=== PATIENT | male | born 1980 | race Caucasian/White ===

== ENCOUNTER 2017-06-24 20:24 | Emergency (ER) | payer OTHER ==
[2017-06-24] MEDS ORDERED: Diphtheria,Pertussis(Acell),Tetanus Vaccine 0.5 ML SDV IM ONE (21:18)
--- NOTE | 2017-06-24 22:03 | EDM.PDOC ---
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, got out of 6y ago, will give booster Left 2-Index finger Pain Score (Numeric/FACES): 8 - Related Data Allergies Allergy/AdvReac Type Severity Reaction Status Date / Time tramadol Allergy Cannot Verified 06/24/17 20:55 Remember Home Meds: Home Meds Cephalexin 500 mg PO TID #9 tablet 06/24/17 [Rx] busPIRone [Buspar] 10 mg PO DAILY 06/24/17 [History] lamoTRIgine [Lamictal] 25 mg PO DAILY 06/24/17 [History] tiZANidine 2 mg PO BEDTIME 06/24/17 [History] Past Medical History Psychiatric History: Reports: PTSD Social & Family History - Family History Family Medical History: Noncontributory ED ROS GENERAL - Review of Systems Review Of Systems: See Below Constitutional: Reports: No Symptoms HEENT: Reports: No Symptoms Respiratory: Reports: No Symptoms Cardiovascular: Reports: No Symptoms Endocrine: Reports: No Symptoms GI/Abdominal: Reports: No Symptoms : Reports: No Symptoms Musculoskeletal: Reports: No Symptoms Skin: Reports: Wound Neurological: Reports: No Symptoms Psychiatric: Reports: No Symptoms Hematologic/Lymphatic: Reports: No Symptoms Immunologic: Reports: No Symptoms ED EXAM, SKIN/RASH Exam: See Below Exam Limited By: No Limitations General Appearance: Alert, WD/WN, No Apparent Distress Skin: Other (L index finger with superficial U-shaped 1 cm lac dorsal and just distal to DIP, small amount of grease at lateral aspect, however edges are completely aligned, peeling back medial margin indicates depth of 3 mm, primarily in horizontal plane and superficial to tendons and joint, full flex/ ext PIP, LT intact) Course - Vital Signs Last Recorded V/S: Last Vital Signs Temp 36.7 C 06/24/17 20:35 Pulse 92 06/24/17 20:35 Resp 16 06/24/17 20:35 BP 134/86 06/24/17 20:35 Pulse Ox 92 L 06/24/17 20:35 - Orders/Labs/Meds Orders: Active Orders 24 hr Category Date Time Status Vaccines to be Administered [RC] PER UNIT ROUTINE Care 06/24/17 21:19 Active Meds: Medications Discontinued Medications Generic Name Dose Route Start Last Admin Trade Name Deuce PRN Reason Stop Dose Admin Diphtheria/Tetanus/Acell Pertussis 0.5 ml 06/24/17 21:18 Adacel IM 06/24/17 21:19 .ONCE ONE - Re-Assessments/Exams Free Text/Narrative Re-Assessment/Exam: 06/24/17 22:01 should heal well with SS and splinting, appropriate care reviewed at some length Departure - Departure Time of Disposition: 22:01 Disposition: Home, Self-Care 01 Condition: Good Clinical Impression: Laceration of finger - Discharge Information Prescriptions: Cephalexin 500 mg PO TID #9 tablet Instructions: Stitches, [place], or Adhesive Wound Closure, [id number] Referrals: Ary Hinojosa [facility] [Primary Care Provider] - Additional Instructions: For infection, take cephalexin 500 mg 1 tab 3 times a day for 3 days. Keep clean and dry. Keep covered with a dressing and wear splint for 1 week. May leave open to air for 30-60 minutes in evening, if desired. However, do not bend. Inspect wound daily. See a physician the same day for an increase in redness, swelling, pain, warmth, fever or drainage. May get wet and resume normal activity in one week. Reinforce knuckle with 2 bandaids for another week if necessary. Call your Physician or Return to Emergency Department if: * Your condition worsens in any way. * You develop fever greater than 100.4. * You have vomitting that does not stop with medications. * You have pain that is not controlled with medications. - My Orders Last 24 Hours: My Active Orders 06/24/17 21:19 Vaccines to be Administered [RC] PER UNIT ROUTINE - Assessment/Plan Last 24 Hours: My Active Orders 06/24/17 21:19 Vaccines to be Administered [RC] PER UNIT ROUTINE
== END 2017-06-24 22:25 | disposition home or self-care (01) ==
LOC: FB.ED 20:24
DX: S61.211A Laceration without foreign body of left index finger without damage to nail, initial encounter (principal); Z23 Encounter for immunization; Z88.5 Allergy status to narcotic agent; W26.0XXA Contact with knife, initial encounter
CPT/HCPCS: 90471; 90715; 99282; 99283